=== PATIENT | female | born 1990 | race Caucasian/White ===

== ENCOUNTER 2018-12-19 13:39 | Observation (INO) | payer BC, MEDICAID ==
[~2018-12-19] VITALS: Ht 154.9 cm; Wt 68.1 kg
[2018-12-19 13:44] VITALS: BP 102/56
[2018-12-19 16:41] LABS: AMPHETAMINE SCREEN, URINE Negative (Negative); BARBITURATE SCREEN, URINE Negative (Negative); BENZODIAZEPINE SCREEN, URINE Negative (Negative); CANNABINOID SCREEN, URINE Positive (Negative); COCAINE SCREEN, URINE Negative (Negative); METHADONE SCREEN, URINE Negative (Negative); OPIATE SCREEN, URINE Negative (Negative)
== END 2018-12-19 17:00 | disposition home or self-care (01) ==
LOC: LDOP 13:39 → LDIP 13:40
PROVIDERS: ADMIT Obstetrics & Gynecology; ATTEND Obstetrics & Gynecology
DX: O36.5930 Maternal care for other known or suspected poor fetal growth, third trimester, not applicable or unspecified (principal); O76 Abnormality in fetal heart rate and rhythm complicating labor and delivery; O99.323 Drug use complicating pregnancy, third trimester; F12.90 Cannabis use, unspecified, uncomplicated; Z3A.34 34 weeks gestation of pregnancy
CPT/HCPCS: 80307; G0378; 59025; G0463

== ENCOUNTER 2019-01-17 05:55 | Inpatient (IN) | payer MEDICAID ==
[~2019-01-17] VITALS: Ht 154.9 cm; Wt 71.8 kg
[~2019-01-17 05:55] MED LIST: PREN1TAB60 PO
[2019-01-17] MEDS ORDERED: OXYTOCIN 30U/ 0.9% NaCL 500ML 500 ML IV ONE (05:58)
[2019-01-17] MEDS: D5%-LACTATED RINGERS 1,000 ML IV SCH ×3 (05:58→21:58)
[2019-01-17] MEDS ORDERED: OXYTOCIN 30U/ 0.9% NaCL 500ML 500 ML IV PRN (05:58)
[2019-01-17] MEDS ORDERED: FENTANYL PF 100 MCG/2ML IVPush PRN (06:00)
[2019-01-17] MEDS ORDERED: METOCLOPRAMIDE 5 MG/ML, 2ML IVPush PRN (06:00)
[2019-01-17] MEDS ORDERED: SODIUM CITRATE/CITRIC ACID 15 ML UDC PO PRN (06:00)
[2019-01-17] MEDS ORDERED: TERBUTALINE 1 MG/ML, 1ML IVPush PRN (06:00)
[2019-01-17] MEDS ORDERED: ONDANSETRON 2MG/ML, 2ML IVPush PRN (06:00)
[2019-01-17] MEDS ORDERED: CALCIUM CARBONATE 500 MG TAB.CHEW PO PRN (06:00)
[2019-01-17] MEDS ORDERED: FENTANYL PF 100 MCG/2ML IV PRN (06:00)
[2019-01-17] MEDS ORDERED: MISOPROSTOL 25 MCG TABLET VG PRN (06:30)
[2019-01-17] MEDS ORDERED: OXYTOCIN 30U/ 0.9% NaCL 500ML 500 ML ONE (06:31)
[2019-01-17] MEDS ORDERED: NEWBORN KIT ONE (06:31)
[2019-01-17 06:34] LABS: BASOPHILS # (AUTO) 0.04 x10^3/uL (0-0.1); BASOPHILS % (AUTO) 0 % (0-1); EOSINOPHILS # (AUTO) 0.05 x10^3/uL (0-0.4); EOSINOPHILS % (AUTO) 1 % (1-7); LYMPHOCYTES # (AUTO) 2.43 x10^3/uL (1-3.4); LYMPHOCYTES % (AUTO) 25 % (22-44); MD NO; MEAN CORPUSCULAR HEMOGLOBIN 27.5 pg (27.0-34.8); MEAN CORPUSCULAR VOLUME 86.2 fL (80-100); MEAN PLATELET VOLUME 8.4 fL (7.4-10.4); MONOCYTES # (AUTO) 0.65 x10^3/uL (0.2-0.8); MONOCYTES % (AUTO) 7 % (2-9); NEUTROPHILS # (AUTO) 6.66 x10^3/uL (1.8-6.8); NEUTROPHILS % (AUTO) 68 % (42-75); PLATELET COUNT 246 x10^3/uL (130-400); RED BLOOD COUNT 4.42 x10^6/uL (3.82-5.3); RED CELL DISTRIBUTION WIDTH 13.8 % (9.6-15.2)
[2019-01-17] MEDS: LACTATED RINGERS 1,000 ML IV SCH ×6 (06:38→23:16)
[2019-01-17] MEDS ORDERED: LIDOCAINE 1%, 20ML ONE (07:08)
[2019-01-17] MEDS ORDERED: MISOPROSTOL 200 MCG TABLET ONE (07:08)
[2019-01-17] MEDS ORDERED: MISOPROSTOL 25 MCG TABLET ONE (07:08)
[2019-01-17] MEDS ORDERED: TERBUTALINE 1 MG/ML, 1ML ONE ×2 (08:31→22:25)
[2019-01-17] MEDS ORDERED: FENTANYL/BUPIV./NS/PF 250 ML EPIDCONT SCH ×2 (08:57→19:29)
[2019-01-17 08:58] LABS: AMPHETAMINE SCREEN, URINE Negative (Negative); BARBITURATE SCREEN, URINE Negative (Negative); BENZODIAZEPINE SCREEN, URINE Negative (Negative); CANNABINOID SCREEN, URINE Negative (Negative); COCAINE SCREEN, URINE Negative (Negative); METHADONE SCREEN, URINE Negative (Negative); OPIATE SCREEN, URINE Negative (Negative)
[2019-01-17] MEDS ORDERED: EPHEDRINE 50 MG/ML, 1ML IVPush PRN ×2 (09:00→19:30)
[2019-01-17] MEDS ORDERED: LACTATED RINGERS 1,000 ML IVBOLUS PRN ×2 (09:00→19:30)
[2019-01-17] MEDS ORDERED: FENTANYL PF 500 MCG, BUPIVACAINE/PF 0.5%, 30ML 62.5 ML in SODIUM CHLORIDE 0.9% 177.5 ML EPIDCONT SCH (09:30)
[2019-01-17] MEDS ORDERED: BUPIVACAINE 0.25% ONE (19:05)
[2019-01-17] MEDS ORDERED: LIDOCAINE/PF 1.5%-EPI 1:200K, 30ML ONE (19:05)
[2019-01-17] MEDS ORDERED: NALOXONE 0.4 MG/ML, 1ML IVPush PRN (19:30)
[2019-01-17] MEDS ORDERED: SODIUM CITRATE/CITRIC ACID 15 ML UDC ONE (22:00)
[2019-01-17] MEDS ORDERED: METOCLOPRAMIDE 5 MG/ML, 2ML ONE (22:00)
[2019-01-18] MEDS ORDERED: ONDANSETRON 2MG/ML, 2ML ONE (00:44)
[2019-01-18] MEDS: LACTATED RINGERS 1,000 ML IV SCH ×2 (00:57→03:29)
[2019-01-18] MEDS: OXYTOCIN 30U/ 0.9% NaCL 500ML 500 ML IV SCH ×2 (04:34→07:53)
[2019-01-18] MEDS ORDERED: OXYTOCIN 30U/ 0.9% NaCL 500ML 500 ML ONE (04:56)
[2019-01-18] MEDS ORDERED: OXYcodone IR 5MG TABLET PO PRN (05:00)
[2019-01-18] MEDS ORDERED: CARBOPROST TROMETHAMINE 250 MCG/ML, 1ML IM PRN (05:00)
[2019-01-18] MEDS ORDERED: ONDANSETRON 2MG/ML, 2ML IV PRN (05:00)
[2019-01-18] MEDS ORDERED: MISOPROSTOL 200 MCG TABLET PR PRN (05:00)
[2019-01-18] MEDS ORDERED: METHYLERGONOVINE 0.2 MG/ML IM PRN (05:00)
[2019-01-18] MEDS ORDERED: IBUPROFEN 800 MG TABLET ONE (07:42)
[2019-01-18] MEDS: IBUPROFEN 800 MG TABLET PO PRN ×2 (07:44→21:08)
[2019-01-18 08:05] VITALS: BP 106/69
[2019-01-18] MEDS: PRENATAL VIT/IRON/FA 1 EACH TABLET PO SCH (09:00)
[2019-01-18 13:00] LABS: BASOPHILS # (AUTO) 0.07 x10^3/uL (0-0.1); BASOPHILS % (AUTO) 1 % (0-1); EOSINOPHILS # (AUTO) 0.01 x10^3/uL (0-0.4); EOSINOPHILS % (AUTO) 0 % (1-7); LYMPHOCYTES # (AUTO) 1.95 x10^3/uL (1-3.4); LYMPHOCYTES % (AUTO) 13 % (22-44); MD SCAN; MEAN CORPUSCULAR HEMOGLOBIN 28.2 pg (27.0-34.8); MEAN CORPUSCULAR HGB CONC 33.1 g/dL (32.4-35.8); MEAN CORPUSCULAR VOLUME 85.3 fL (80-100); MEAN PLATELET VOLUME 8.4 fL (7.4-10.4); MONOCYTES # (AUTO) 0.42 x10^3/uL (0.2-0.8); MONOCYTES % (AUTO) 3 % (2-9); NEUTROPHILS % (AUTO) 84 % (42-75); PLATELET COUNT 184 x10^3/uL (130-400); RED BLOOD COUNT 4.13 x10^6/uL (3.82-5.3)
[2019-01-18 14:00] VITALS: BP 110/74
[2019-01-18] MEDS: OXYcodone IR 5MG TABLET PO PRN ×2 (16:41→21:08)
[2019-01-18 20:00] VITALS: BP 108/71
[2019-01-19] VITALS: BP 102/67
[2019-01-19] MEDS: OXYTOCIN 30U/ 0.9% NaCL 500ML 500 ML IV SCH ×3 (00:34→20:34)
[2019-01-19] MEDS: IBUPROFEN 800 MG TABLET PO PRN ×2 (05:33→13:36)
[2019-01-19] MEDS: OXYcodone IR 5MG TABLET PO PRN (05:33)
[2019-01-19] MEDS: PRENATAL VIT/IRON/FA 1 EACH TABLET PO SCH (07:47)
[2019-01-19 07:50] VITALS: BP 97/63
[2019-01-19] MEDS ORDERED: IBUP-1222 PO (08:46)
[2019-01-19] MEDS ORDERED: OXYC-302 PO (08:46)
[2019-01-19] MEDS ORDERED: DIPH,PERTUSS(ACELL),TET VAC/PF NC IM-VACC ONE (13:43)
[2019-01-19 20:15] VITALS: BP 111/74
[2019-01-20] MEDS: IBUPROFEN 800 MG TABLET PO PRN ×2 (02:23→11:54)
[2019-01-20] MEDS: OXYTOCIN 30U/ 0.9% NaCL 500ML 500 ML IV SCH (06:34)
[2019-01-20 07:10] VITALS: BP 116/78
[2019-01-20] MEDS: PRENATAL VIT/IRON/FA 1 EACH TABLET PO SCH (09:24)
[2019-01-20] MEDS ORDERED: MEASLES,MUMPS&RUBELLA VACC/PF 0.5 ML SQ-VACC ONE (12:00)
== END 2019-01-20 12:30 | disposition home or self-care (01) | DRG 807 ==
LOC: LDIP 05:55 → 2NW 01-18 07:57
PROVIDERS: ADMIT Obstetrics & Gynecology; ATTEND Obstetrics & Gynecology
PROC: 10907ZC Drainage of Amniotic Fluid, Therapeutic from Products of Conception, Via Natural or Artificial Opening (ICD-10-PCS; principal; 2019-01-18)
PROC: 10E0XZZ Delivery of Products of Conception, External Approach (ICD-10-PCS; 2019-01-18)
PROC: 0KQM0ZZ Repair Perineum Muscle, Open Approach (ICD-10-PCS; 2019-01-18)
PROC: 3E0R3BZ Introduction of Anesthetic Agent into Spinal Canal, Percutaneous Approach (ICD-10-PCS; 2019-01-18)
PROC: 00HU33Z Insertion of Infusion Device into Spinal Canal, Percutaneous Approach (ICD-10-PCS; 2019-01-18)
DX: O36.5930 Maternal care for other known or suspected poor fetal growth, third trimester, not applicable or unspecified (principal); Z37.0 Single live birth; O69.1XX0 Labor and delivery complicated by cord around neck, with compression, not applicable or unspecified; O70.1 Second degree perineal laceration during delivery; Z3A.39 39 weeks gestation of pregnancy
CPT/HCPCS: 36415; J3490; S0020; 80307; 85025; 86850; 86900; G0378; J2405; J3010; J2590; J7050; J7120